=== PATIENT | female | born 1960 | race Caucasian/White ===

== ENCOUNTER → 2024-02-02 09:53 | Outpatient (REF) | payer BC, SELFPAY | LOC: WDC 09:53 | PROVIDERS: ATTENDING PHYSICIAN Nurse Practitioner Family; FAMILY PHYSICIAN Internal Medicine | DX: Z12.31 Encounter for screening mammogram for malignant neoplasm of breast (principal) | CPT/HCPCS: 77063; 77067 ==

== ENCOUNTER → 2024-05-05 07:33 | Outpatient (REF) | payer BC, SELFPAY ==
[2024-05-05 09:04] LABS: ALT (SGPT) 28 U/L (0-35); AST (SGOT) 56 U/L (14-36); Alkaline Phosphatase 123 U/L (38-126); Blood Urea Nitrogen 10 mg/dl (7-17); Calcium 9.7 mg/dl (8.4-10.2); Carbon Dioxide 29 mmol/L (22-30); Chloride 100 mmol/L (98-107); Glucose 89 mg/dl (70-99); Potassium 4.8 mmol/L (3.5-5.1); Sodium 137 mmol/L (135-145); Total Bilirubin 0.8 mg/dl (0.2-1.3); Total Protein 6.9 g/dl (6.3-8.2); eGFR > 60.00
[2024-05-05 09:14] LABS: Erythrocyte Sed Rate 21 mm/hour (0-20)
[2024-05-05 09:54] LABS: Glycohemoglobin (HgbA1c) 5.2 % (4.0-5.6)
[2024-05-05 09:56] LABS: TSH 2.81 uIU/ml (0.47-4.68)
[2024-05-05 11:29] LABS: Microalbumin, Random Urine 0.8 mg/dl (0.6-1.7)
[2024-05-07 16:35] LABS: ANA, IgG Reflex to HEp-2 Detected (None Detected)
== END ==
LOC: REG 07:33
PROVIDERS: ATTENDING PHYSICIAN Internal Medicine
DX: E11.43 Type 2 diabetes mellitus with diabetic autonomic (poly)neuropathy (principal); R11.2 Nausea with vomiting, unspecified; K31.84 Gastroparesis; K21.9 Gastro-esophageal reflux disease without esophagitis; K76.0 Fatty (change of) liver, not elsewhere classified; R76.8 Other specified abnormal immunological findings in serum; I10 Essential (primary) hypertension; E03.9 Hypothyroidism, unspecified
CPT/HCPCS: 36415; 80053; 82043; 83036; 84443; 85652; 86038; 86140

== ENCOUNTER → 2025-01-19 08:36 | Outpatient (REF) | payer BC, SELFPAY ==
[2025-01-19 09:57] LABS: ALT (SGPT) 20 U/L (0-35); AST (SGOT) 35 U/L (14-36); Albumin 4.1 g/dl (3.5-5.0); Alkaline Phosphatase 86 U/L (38-126); Blood Urea Nitrogen 10 mg/dl (7-17); Calcium 9.2 mg/dl (8.4-10.2); Carbon Dioxide 31 mmol/L (22-30); Chloride 99 mmol/L (98-107); Glucose 79 mg/dl (70-99); HDL Cholesterol 93 mg/dl; Iron 97 ug/dl (37-170); LDL Cholesterol, Calculated 112 mg/dl; Potassium 4.8 mmol/L (3.5-5.1); Sodium 138 mmol/L (135-145); Total Bilirubin 0.6 mg/dl (0.2-1.3); Total Cholesterol 242 mg/dl (50-199); Total Protein 6.6 g/dl (6.3-8.2); Triglyceride 186 mg/dl (10-149); Very Low Density Lipoprotein 37 mg/dl (0-30); eGFR > 60.00
[2025-01-19 10:07] LABS: Percent Saturation 36 % (20-50); Total Iron Binding Capacity 264 ug/dl (265-497)
[2025-01-19 10:38] LABS: Microalbumin, Random Urine < 0.6 mg/dl (0.6-1.7)
[2025-01-19 10:47] LABS: TSH 0.33 uIU/ml (0.47-4.68)
[2025-01-19 17:26] LABS: Free T4 1.26 ng/dl (0.78-2.19)
[2025-01-19 17:33] LABS: Rheumatoid Agglutinin Less Than 10 IU (<10 IU)
[2025-01-21 03:09] LABS: ds-DNA Ab, IgG Reflex To Titer 5 IU (0-24)
== END ==
LOC: REG 08:36
PROVIDERS: ATTENDING PHYSICIAN Internal Medicine
DX: E11.43 Type 2 diabetes mellitus with diabetic autonomic (poly)neuropathy (principal); I10 Essential (primary) hypertension; E03.9 Hypothyroidism, unspecified; E78.2 Mixed hyperlipidemia; R74.8 Abnormal levels of other serum enzymes; R76.8 Other specified abnormal immunological findings in serum
CPT/HCPCS: 36415; 80053; 80061; 82043; 82728; 83036; 83540; 83550; 84439; 84443; 86225; 86430

== ENCOUNTER → 2025-03-10 06:38 | Outpatient (REF) | payer BC, SELFPAY | LOC: WDC 06:38 | PROVIDERS: ATTENDING PHYSICIAN Internal Medicine Geriatric Medicine; FAMILY PHYSICIAN Internal Medicine | DX: Z12.31 Encounter for screening mammogram for malignant neoplasm of breast (principal) | CPT/HCPCS: 77063; 77067 ==

== ENCOUNTER → 2025-03-10 07:17 | Outpatient (REF) | payer BC, SELFPAY | LOC: RAD 07:17 | PROVIDERS: ATTENDING PHYSICIAN Internal Medicine Geriatric Medicine | DX: I10 Essential (primary) hypertension (principal); E78.2 Mixed hyperlipidemia; M79.10 Myalgia, unspecified site; E03.9 Hypothyroidism, unspecified; G25.81 Restless legs syndrome; F41.1 Generalized anxiety disorder; K21.9 Gastro-esophageal reflux disease without esophagitis; E11.43 Type 2 diabetes mellitus with diabetic autonomic (poly)neuropathy; F32.9 Major depressive disorder, single episode, unspecified; M54.16 Radiculopathy, lumbar region; E55.9 Vitamin D deficiency, unspecified; Z13.89 Encounter for screening for other disorder; M10.9 Gout, unspecified; M54.50 Low back pain, unspecified | CPT/HCPCS: 72110; 72202; 73523 ==

== ENCOUNTER → 2025-05-18 06:34 | Outpatient (REF) | payer BC, SELFPAY | LOC: MRI 3T 06:34 | PROVIDERS: ATTENDING PHYSICIAN Internal Medicine Geriatric Medicine | DX: M51.360 Other intervertebral disc degeneration, lumbar region with discogenic back pain only (principal) | CPT/HCPCS: 72148 ==

== ENCOUNTER → 2025-07-20 07:30 | Outpatient (REF) | payer BC, SELFPAY | LOC: MRI 07:30 | PROVIDERS: ATTENDING PHYSICIAN Internal Medicine; FAMILY PHYSICIAN Internal Medicine | DX: K76.0 Fatty (change of) liver, not elsewhere classified (principal); K74.02 Hepatic fibrosis, advanced fibrosis | CPT/HCPCS: 74183; 76391; A9575 ==

== ENCOUNTER → 2025-08-19 07:24 | Outpatient (REF) | payer BC, SELFPAY ==
[2025-08-19 08:19] LABS: Urine Character Clear (Clear)
[2025-08-19 08:21] LABS: Hematocrit 43.1 % (37.0-47.0); Hemoglobin 14.9 g/dL (12.0-16.0); Mean Corp Hgb Conc. 34.6 g/dL (33.0-37.0); Mean Corpuscular Volume 94.9 fL (81.0-99.0); Nucleated Red Blood Cells % 0 %; Platelet Count 174 10^3/uL (130-400); Red Cell Dist. Width 12.2 % (11.5-14.5)
[2025-08-19 09:02] LABS: ALT (SGPT) 17 U/L (0-35); AST (SGOT) 31 U/L (14-36); Albumin 4.4 g/dl (3.5-5.0); Alkaline Phosphatase 85 U/L (38-126); Blood Urea Nitrogen 7 mg/dl (7-17); Calcium 9.4 mg/dl (8.4-10.2); Carbon Dioxide 32 mmol/L (22-30); Chloride 98 mmol/L (98-107); Glucose 82 mg/dl (70-99); Potassium 4.9 mmol/L (3.5-5.1); Sodium 134 mmol/L (135-145); Total Protein 7.0 g/dl (6.3-8.2); Very Low Density Lipoprotein 20 mg/dl (0-30); eGFR > 60.00
[2025-08-19 09:40] LABS: Glycohemoglobin (HgbA1c) 4.9 % (4.0-5.6)
[2025-08-19 12:10] LABS: HDL Cholesterol 113 mg/dl; LDL Cholesterol, Calculated 88 mg/dl
== END ==
LOC: REG 07:24
PROVIDERS: ATTENDING PHYSICIAN Internal Medicine
DX: Z00.00 Encounter for general adult medical examination without abnormal findings (principal); R73.03 Prediabetes; E03.9 Hypothyroidism, unspecified; E78.2 Mixed hyperlipidemia; I10 Essential (primary) hypertension; R73.01 Impaired fasting glucose
CPT/HCPCS: 36415; 80053; 80061; 81003; 83036; 84443; 85025